=== PATIENT | male | born 1945 | race Caucasian/White ===

== ENCOUNTER 2018-01-21 08:44 | Emergency (ER) | payer MEDICARE ==
[~2018-01-21] VITALS: Ht 180.3 cm; Wt 118.8 kg
[2018-01-21 09:01] VITALS: BP 138/71
[2018-01-21] MEDS ORDERED: GEMF600T4 PO (09:04)
[2018-01-21] MEDS ORDERED: ASPI-496 PO (09:04)
[2018-01-21] MEDS ORDERED: LISI-170 PO (09:04)
[2018-01-21] MEDS ORDERED: AMLO10TA6 PO (09:04)
[2018-01-21] MEDS ORDERED: HYDR12.53 PO (09:04)
[2018-01-21] MEDS ORDERED: LIDOCAINE-MPF 2%, 2ML SQ ONE (09:30)
[2018-01-21] MEDS ORDERED: LIDOCAINE-MPF 1%, 5ML ONE (09:30)
== END 2018-01-21 10:40 | disposition home or self-care (01) ==
LOC: ED 10:35
DX: L02.212 Cutaneous abscess of back [any part, except buttock and flank] (principal); I10 Essential (primary) hypertension; E11.9 Type 2 diabetes mellitus without complications
CPT/HCPCS: 10060; 99283

== ENCOUNTER 2018-01-23 05:43 | Emergency (ER) | payer MEDICARE ==
[~2018-01-23] VITALS: Ht 177.8 cm; Wt 117.6 kg
[~2018-01-23 05:43] MED LIST: AMLO10TA6 PO; ASPI-496 PO; GEMF600T4 PO; HYDR12.53 PO; LISI-170 PO
[2018-01-23 05:46] VITALS: BP 147/79
== END 2018-01-23 06:22 | disposition home or self-care (01) ==
LOC: ED 06:08
DX: L02.212 Cutaneous abscess of back [any part, except buttock and flank] (principal); E11.9 Type 2 diabetes mellitus without complications; I10 Essential (primary) hypertension
CPT/HCPCS: 99282